=== PATIENT | male | born 1975 | race Caucasian/White ===

== ENCOUNTER → 2018-06-07 | Outpatient (CLI) | payer MEDICAID | LOC: BMCIMAGING 08:59 | PROVIDERS: ATTEND Internal Medicine | DX: K70.30 Alcoholic cirrhosis of liver without ascites (principal); R16.1 Splenomegaly, not elsewhere classified; N20.0 Calculus of kidney; K80.20 Calculus of gallbladder without cholecystitis without obstruction ==

== ENCOUNTER 2018-09-30 07:41 | Day surgery (SDC) | payer MEDICAID ==
[2018-09-30] MEDS ORDERED: ceFAZolin 2 GM/DEXTROSE 100 ML IV ONE (07:53)
[2018-09-30] MEDS ORDERED: LR 1,000 ML IV ONE (07:54)
[2018-09-30] MEDS ORDERED: fentaNYL 250 MCG/5 ML INJ ONE (08:16)
[2018-09-30] MEDS ORDERED: ROCURONIUM 100 MG/10 ML VIAL ONE (08:16)
[2018-09-30] MEDS ORDERED: GLYCOPYRROLATE 0.2 MG/1 ML VIAL ONE ×2 (08:16→09:39)
[2018-09-30] MEDS ORDERED: PROPOFOL/EMULSION 500 MG/50 ML BOTTLE IV ONE ×2 (08:16→10:32)
[2018-09-30] MEDS ORDERED: LIDOCAINE 2% 5 ML SDV ONE (08:17)
[2018-09-30] MEDS ORDERED: DEXAMETHASONE 4 MG/ML VIAL ONE (08:17)
[2018-09-30] MEDS ORDERED: BUPIVACAINE 0.5% 30 ML SDV ONE (08:35)
[2018-09-30 08:39] LABS: INR 1.25 (0.83-1.16); PROTIME(PATIENT) 15.2 SEC (12.0-15.0)
[2018-09-30] MEDS ORDERED: MIDAZOLAM 2 MG/2 ML VIAL IVP ONE (08:43)
--- NOTE | 2018-09-30 08:46 | PDANEPAE ---
ANE History of Present Illness Incisional hernia repair ANE Past Medical History - Cardiovascular History Hx Hypertension: No Hx Arrhythmias: No Hx Chest Pain: No Hx Coronary Artery / Peripheral Vascular Disease: No Hx CHF / Valvular Disease: No Hx Palpitations: No - Pulmonary History Hx COPD: No Hx Asthma/Reactive Airway Disease: No Hx Recent Upper Respiratory Infection: No Hx Oxygen in Use at Home: No Hx Sleep Apnea: No Sleep Apnea Screening Result - Last Documented: Negative - Neurologic History Hx Cerebrovascular Accident: No Hx Seizures: No Hx Dementia: No - Endocrine History Hx Diabetes: No Obesity: mild - Renal History Hx Renal Disorders: No - Liver History Hx Hepatic Disorders: Yes Hepatic History Comment: HX OF ALCOHOLISM SOBER FOR 3 YEARS,DEVELOPED CIRRHOSIS REQUIRING A TIPS PROCEDURE 2017. HEPATIC ENCEPHALOPATHY - Neurological & Psychiatric Hx Hx Neurological and Psychiatric Disorders: No - Cancer History Hx Cancer: No - Congenital Disorder History Hx Congenital Disorders: No - GI History GERD: mild Hx Gastrointestinal Disorders: Yes Gastrointestinal History Comment: PREV ESOPHAGEAL VARICES - Chronic Pain History Chronic Pain: Yes (UMBILICAL HERNIA) - Surgical History Prior Surgeries: INCISIONAL HERNIA REPAIR X2. NIYAH ING HERNIA ANE Review of Systems Review of Systems: - Exercise capacity METS (RN): 6 METS ANE Patient History - Allergies Allergies/Adverse Reactions: No Known Allergies Allergy (Unverified 09/26/18 10:57) - Home Medications Home medications: home medication list seen and reviewed Home Medications: Amiloride DAILY 09/27/18 [Last Taken 09/30/18 06:00] Furosemide DAILY 09/27/18 [Last Taken 09/29/18] Herbals/Supplements -Info Only DAILY 09/27/18 [Last Taken 09/29/18 21:00] NADOLOL DAILY 09/27/18 [Last Taken 09/30/18 06:00] Xifaxan BID 09/27/18 [Last Taken 09/30/18 06:00] - NPO status NPO Status: no food or drink >8 hours NPO Since - Liquids (Date): 09/30/18 NPO Since - Liquids (Time): 06:00 NPO Since - Solids (Date): 09/29/18 NPO Since - Solids (Time): 20:00 - Anes Hx Anes Hx: no prior problems - Smoking Hx Smoking Status: Never smoked - Alcohol Use Alcohol Use: Sober - Family Anes Hx Family Anes Hx: none ANE Labs/Vital Signs - Vital Signs Blood Pressure: 131/89 Heart Rate: 67 Respiratory Rate: 16 O2 Sat (%): 93 Height: 177.8 cm Weight: 99.79 kg ANE Physical Exam - Airway Neck exam: FROM Mallampati Score: Class 2 Mouth exam: normal dental/mouth exam - Pulmonary Pulmonary: no respiratory distress, no rales or rhonchi - Cardiovascular Cardiovascular: regular rate and rhythym, no murmur, rub, or gallop - ASA Status ASA Status: III ANE Anesthesia Plan Anesthesia Plan: general endotracheal anesthesia
--- NOTE | 2018-09-30 09:18 | PDHPUP ---
History & Physical Update H&P update statement: This history and physical update is based on an assessment of the patient which was completed after admission or registration (within 24 hours), but prior to the surgery/procedure. H&P update: H&P reviewed & patient examined, no change in patient's condition since H&P completed
[2018-09-30] MEDS ORDERED: fentaNYL 100 MCG/2 ML INJ ONE ×3 (10:31→13:53)
[2018-09-30] MEDS ORDERED: HYDROmorphONE/DILAUDID 2 MG/ML INJ IVP PRN (11:03)
[2018-09-30] MEDS ORDERED: PROMETHAZINE HCL 25 MG/ML INJ IVP PRN (11:03)
[2018-09-30] MEDS ORDERED: fentaNYL 100 MCG/2 ML INJ IVP PRN (11:03)
[2018-09-30] MEDS ORDERED: oxyCODONE IR 5 MG TAB PO PRN (11:03)
[2018-09-30] MEDS ORDERED: NALOXONE HCL 0.4 MG/ML INJ IVP PRN (11:03)
[2018-09-30] MEDS ORDERED: HYDROCODONE/APAP 5/325 TAB PO PRN (11:03)
[2018-09-30] MEDS ORDERED: ONDANSETRON 4 MG/2 ML VIAL IVP PRN (11:03)
[2018-09-30] MEDS ORDERED: ALBUTEROL 3 ML DEYVIAL IH PRN (11:03)
[2018-09-30] MEDS ORDERED: LABETALOL HCL 5 MG/ML 20 ML MDV IVP PRN (11:03)
[2018-09-30] MEDS ORDERED: ACETAMINOPHEN 500 MG TAB PO PRN (11:03)
[2018-09-30] MEDS ORDERED: PROPOFOL 200 MG/20 ML VIAL ONE ×3 (11:33→12:29)
[2018-09-30] MEDS ORDERED: ROCURONIUM 50 MG/5 ML VIAL ONE ×3 (11:56→13:43)
[2018-09-30] MEDS ORDERED: SUGAMMADEX SODIUM 200 MG/2 ML VIAL IVP ONE (13:49)
--- NOTE | 2018-09-30 14:00 | POSTOPPROG ---
Post Op Note Date of Operation: 09/30/18 Surgeon: Jef Hutchinson Motorcycle Technician: Traci Anesthesiologist: David Anesthesia: GET(General Endotracheal) Pre-op Diagnosis: Recurrent ventral hernia Post-op Diagnosis: same Indication: same Procedure: Robotic ventral hernia repair with mesh Inf/Abcess present in the surg proc area at time of surgery?: No Depth: Organ Space EBL: Minimal
[2018-09-30] MEDS ORDERED: OXYCODONE/APAP 5/325 TAB ONE (15:55)
[2018-09-30] MEDS ORDERED: oxyCODONE IR 5 MG TAB ONE (15:59)
[2018-09-30 16:49] VITALS: BP 136/99
--- NOTE | 2018-10-03 12:38 | GOP ---
[f rep st] OPERATIVE REPORT DATE OF OPERATION: 09/30/2018 SURGEON: Jef Hutchinson MD [employer] ADVISER: Samantha Aviles NP. ANESTHESIOLOGIST: Kathryn Hernandez MD. PREOPERATIVE DIAGNOSIS: Recurrent ventral hernia. POSTOPERATIVE DIAGNOSIS: Recurrent ventral hernia. PROCEDURE PERFORMED: Robotic-assisted recurrent ventral hernia repair with mesh. FINDINGS: The patient was found to have a 5 cm ventral hernia defect with some incarcerated omental tissue. However, the fascial defect was somewhat difficult to close directly with a significant amou nt of tension on the wound. There may have been some old mesh involved as well, but that was not vis ualized. ESTIMATED BLOOD LOSS: Negligible. DESCRIPTION OF PROCEDURE: Patient taken to the operating room where he received a satisfactory gener al endotracheal anesthesia by Dr. Hernandez. He was placed in the supine position with the table flexed and his left arm tucked slightly lower than the abdominal wall. A Veress needle was inserted throug h a small incision in the left upper quadrant. Pneumoperitoneum was established. Trocar was introdu marisol. Good visualization was obtained. Two other trocars were than placed under direct vision latera lly in the left side of the abdomen. The robot was then brought in and docked to the camera site. T he table had been rotated 15 degrees laterally as well. The area was targeted, and after successful targeting, the remaining trocars were docked to the robot and instruments were introduced. The herni a sac was dissected free. A large amount of omental tissue was freed up from the hernia defect and r educed. Hemostasis was carefully obtained with cautery, and the defect was freshened up and exposed. The hernia sac itself was dissected out of the defect with care to avoid injury to the overlying sk in. At that point, the defect itself was closed with a running 0 StrataFix suture. However, there w as a significant amount of tension on the muscular layers. Several sutures broke, requiring interrup omid suture fixation of the defect, which eventually succeeded in approximating the muscular layer. H emostasis was assured. Peritoneum was dissected off the fascia circumferentially. A 15 x 10 dual-si ded mesh was introduced. Some previously placed sutures were then brought up to the abdominal surfac e through small pinhole incisions and grasped and pulled up through these incisions to secure the mes h up to the abdominal wall. The mesh was then secured circumferentially with a running 0 StrataFix s uture. This required 2 separate sutures to complete full circumferential anchor. Hemostasis appeare d to be adequate. Any tissue debris was removed through one of the ports, and the ports were then re moved under direct vision. The pneumoperitoneum was released. Trocar sites were closed with 4-0 Mon ocryl subcuticular sutures and infiltrated with 0.5% Marcaine. He tolerated the procedure well. The re were no complications. /[id number]/MODL
== END 2018-09-30 16:49 | disposition home or self-care (01) ==
LOC: FSGY 07:41
PROVIDERS: ATTEND Surgery
PROC: 0WUF0JZ Supplement Abdominal Wall with Synthetic Substitute, Open Approach (ICD-10-PCS; principal; 2018-09-30 09:00)
DX: K43.2 Incisional hernia without obstruction or gangrene (principal); F10.11 Alcohol abuse, in remission; K70.30 Alcoholic cirrhosis of liver without ascites
CPT/HCPCS: C1781; J1100; J2250; J2704; J3010